=== PATIENT | male | born 2000 | race Caucasian/White ===

== ENCOUNTER 2021-02-18 12:34 | Emergency (ER) | payer OTHER ==
[~2021-02-18] VITALS: Ht 167.6 cm; Wt 59.0 kg
[2021-02-18 13:01] VITALS: BP 149/64
--- NOTE | 2021-02-18 13:16 | NUR ---
PT AMBULATED TO BED, STEADY GAIT
[2021-02-18] MEDS ORDERED: ONDANSETRON 4 MG/2 ML VIAL IVP ONE (13:20)
[2021-02-18] MEDS ORDERED: NACL 0.9% 1,000 ML IV ONE (13:20)
--- NOTE | 2021-02-18 13:29 | NUR ---
20 Y/O MALE C/O ABDOMINAL DISCOMFORT WITH NAUSEA AND DRY HEAVING. PT REPORTS LOSS OF APETITE, DIZZY, WEAK, CHILLS SINCE THIS MORNING. URINARY AND BOWEL ELIMINATION NORMAL. PT AMBULATED TO BED WITH NO ASSISTANCE, CURRENTLY SITTING SEMI FOWLERS WITH RAIL UP X1, BED IN LOWEST SETTING. HX: NONE NKDA MEDS: NONE
--- NOTE | 2021-02-18 13:51 | NUR ---
BLOOD WORK COLLECTED, KARIE, AND URINE GIVEN TO SANG TORRE IN LAB
[2021-02-18 14:03] LABS: BASOPHILS % (AUTO) 0.3 % (0.0-2.0); HEMATOCRIT 48.6 % (36-52); HEMOGLOBIN 16.7 g/dL (12.0-18.0); LYMPHOCYTES # (AUTO) 0.9 K/uL (2.0-11.5); LYMPHOCYTES % (AUTO) 14.2 % (20.5-51.1); MEAN CORPUSCULAR HEMOGLOBIN 32 pg (27-31); MEAN CORPUSCULAR HGB CONC 34 g/dL (33-37); MONOCYTES # (AUTO) 0.2 K/uL (0.8-1.0); MONOCYTES % (AUTO) 2.9 % (1.7-9.3); NEUTROPHILS # (AUTO) 5.1 K/uL (1.8-7.7); NEUTROPHILS % (AUTO) 82.6 % (42.2-75.2); PLATELET COUNT (AUTO) 310 K/uL (140-450); RED BLOOD CELL COUNT(AUTO) 5.29 MIL/uL (4.20-6.10); RED CELL DISTRIBUTION WIDTH 12.7 % (11.6-13.7); WHITE BLOOD COUNT (AUTO) 6.1 K/uL (4.8-10.8)
[2021-02-18 14:13] LABS: APPEARANCE,URINE CLEAR (CLEAR); BILIRUBIN,URINE 1+ (NEGATIVE); BLOOD, URINE NEGATIVE (NEGATIVE); COLOR,URINE YELLOW (YELLOW); LEUKOCYTE ESTERASE ,URINE NEGATIVE (NEGATIVE); NITRITE, URINE NEGATIVE (NEGATIVE); UGLUCOSE NEGATIVE (NEGATIVE)
[2021-02-18 14:15] LABS: ALBUMIN 4.8 g/dL (3.4-5.0); ANION GAP 17.6 (8-16); CARBON DIOXIDE 23.5 mmol/L (21-32); POTASSIUM 4.1 mmol/L (3.5-5.1); TOTAL BILIRUBIN 2.9 mg/dL (0.0-1.0)
--- NOTE | 2021-02-18 14:50 | NUR ---
Ad mane in ED - 02/18/21 at 1508 by [email or web address] PT TAKEN TO CT VIA W/C
--- NOTE | 2021-02-18 14:55 | NUR ---
PT BROUGHT TO CT
[2021-02-18] MEDS ORDERED: ONDA-188 PO (15:46)
[2021-02-18] MEDS ORDERED: ACET-2619 PO (15:46)
[2021-02-18 16:02] VITALS: BP 149/64
--- NOTE | 2021-02-18 16:02 | NUR ---
Patient discharged with v/s stable. Written and verbal after care instructions given and explained. Patient alert, oriented and verbalized understanding of instructions. Ambulatory with steady gait. All questions addressed prior to discharge. ID band removed. Patient advised to follow up with PMD. Rx of TYLENOL AND ZOFRAN given. Patient educated on indication of medication including possible reaction and side effects. Opportunity to ask questions provided and answered.
== END 2021-02-18 16:02 | disposition home or self-care (01) ==
LOC: MED 12:34
DX: R10.33 Periumbilical pain (principal); R10.31 Right lower quadrant pain; R11.2 Nausea with vomiting, unspecified; R19.7 Diarrhea, unspecified; F12.90 Cannabis use, unspecified, uncomplicated; Z20.822 Contact with and (suspected) exposure to COVID-19; Z79.899 Other long term (current) drug therapy
CPT/HCPCS: 36415; 74177; 80053; 81003; 83690; 85025; 87086; 87426; 96361; 96374; 99285; J2405; J7030; Q9967

== ENCOUNTER 2021-04-05 11:46 | Emergency (ER) | payer OTHER ==
[~2021-04-05] VITALS: Ht 167.6 cm; Wt 54.4 kg
[~2021-04-05 11:46] MED LIST: ACET-2619 PO; ONDA-188 PO
[2021-04-05 12:14] VITALS: BP 160/99
--- NOTE | 2021-04-05 14:01 | NUR ---
KARIE AND FLU SWABS COLLECTED AND WALKED TO LAB
[2021-04-05] MEDS ORDERED: NAPR-54 PO (15:49)
[2021-04-05] MEDS ORDERED: PHEN177S23 PO (15:49)
--- NOTE | 2021-04-05 16:25 | NUR ---
NO NURSING CARE GIVEN. Patient discharged with v/s stable. Written and verbal after care instructions given and explained. Patient alert, oriented and verbalized understanding of instructions. Ambulatory with steady gait. All questions addressed prior to discharge. ID band removed. Patient advised to follow up with PMD. Rx of CHLORASEPTIC 177, NAPOSYN given. Patient educated on indication of medication including possible reaction and side effects. Opportunity to ask questions provided and answered.
== END 2021-04-05 15:55 | disposition home or self-care (01) ==
LOC: MED 11:46
DX: U07.1 COVID-19 (principal)
CPT/HCPCS: 87804; 99283

== ENCOUNTER 2022-03-06 13:41 | Emergency (ER) | payer OTHER ==
[~2022-03-06] VITALS: Ht 167.6 cm; Wt 53.5 kg
[~2022-03-06 13:41] MED LIST changes: +NAPR-54 PO; +PHEN177S23 PO
[2022-03-06 15:11] VITALS: BP 109/71
[2022-03-06 17:19] LABS: BASOPHILS % (AUTO) 0.5 % (0.0-2.0); EOSINOPHILS % (AUTO) 0.4 % (0.0-4.0); HEMOGLOBIN 16.1 g/dL (12.0-18.0); LYMPHOCYTES # (AUTO) 0.7 K/uL (2.0-11.5); LYMPHOCYTES % (AUTO) 9.3 % (20.5-51.1); MEAN CORPUSCULAR HEMOGLOBIN 32 pg (27-31); MEAN CORPUSCULAR HGB CONC 34 g/dL (33-37); MONOCYTES # (AUTO) 0.6 K/uL (0.8-1.0); MONOCYTES % (AUTO) 8.4 % (1.7-9.3); NEUTROPHILS # (AUTO) 6.2 K/uL (1.8-7.7); NEUTROPHILS % (AUTO) 81.4 % (42.2-75.2); PLATELET COUNT (AUTO) 267 K/uL (140-450); RED BLOOD CELL COUNT(AUTO) 5.11 MIL/uL (4.20-6.10); RED CELL DISTRIBUTION WIDTH 13.2 % (11.6-13.7); WHITE BLOOD COUNT (AUTO) 7.6 K/uL (4.8-10.8)
[2022-03-06 17:43] LABS: ALBUMIN 4.9 g/dL (3.4-5.0); ANION GAP 15.4 (8-16); CARBON DIOXIDE 28.1 mmol/L (21-32); POTASSIUM 3.5 mmol/L (3.5-5.1); TOTAL BILIRUBIN 2.1 mg/dL (0.0-1.0)
--- NOTE | 2022-03-06 19:05 | NUR ---
21yr old male bib self c/o r rib pain x3days cough . sharp 7/10 rib pain with cough. HAS HAD A COUGH DENIES CP OR SOB. PT IS A&OX4 RESP EVEN AND UNLABORED. SKIN WARM AND DRY. NKDA NO HX
[2022-03-06] MEDS ORDERED: IBUP-2213 PO (19:23)
[2022-03-06 19:26] VITALS: BP 109/71
--- NOTE | 2022-03-06 19:26 | NUR ---
Patient discharged with v/s stable. Written and verbal after care instructions given and explained. Patient verbalized understanding. Ambulatory with steady gait. All questions addressed prior to discharge. Advised to follow up with PMD.
--- NOTE | 2022-03-06 19:30 | NUR ---
The patient's care was reviewed and supervised by Tahmina Dallas RN.
== END 2022-03-06 19:26 | disposition home or self-care (01) ==
LOC: MED 13:41
DX: J06.9 Acute upper respiratory infection, unspecified (principal); Z20.822 Contact with and (suspected) exposure to COVID-19
CPT/HCPCS: 36415; 71045; 80053; 83690; 85025; 99284

== ENCOUNTER 2022-08-10 17:02 | Emergency (ER) | payer OTHER ==
[~2022-08-10] VITALS: Ht 167.6 cm; Wt 59.9 kg
[~2022-08-10 17:02] MED LIST changes: +IBUP-2213 PO
[2022-08-10 18:01] VITALS: BP 117/74
[2022-08-10 18:17] LABS: BASOPHILS % (AUTO) 0.3 % (0.0-2.0); HEMATOCRIT 46.4 % (36-52); HEMOGLOBIN 16.1 g/dL (12.0-18.0); LYMPHOCYTES # (AUTO) 0.7 K/uL (2.0-11.5); LYMPHOCYTES % (AUTO) 9.4 % (20.5-51.1); MEAN CORPUSCULAR HEMOGLOBIN 31 pg (27-31); MEAN CORPUSCULAR HGB CONC 35 g/dL (33-37); MEAN CORPUSCULAR VOLUME 89.6 fL (80-94); MONOCYTES # (AUTO) 0.8 K/uL (0.8-1.0); MONOCYTES % (AUTO) 10.7 % (1.7-9.3); NEUTROPHILS # (AUTO) 6.3 K/uL (1.8-7.7); NEUTROPHILS % (AUTO) 79.6 % (42.2-75.2); PLATELET COUNT (AUTO) 232 K/uL (140-450); RED BLOOD CELL COUNT(AUTO) 5.17 MIL/uL (4.20-6.10); RED CELL DISTRIBUTION WIDTH 13.1 % (11.6-13.7); WHITE BLOOD COUNT (AUTO) 7.9 K/uL (4.8-10.8)
[2022-08-10 18:36] LABS: ALBUMIN 4.7 g/dL (3.4-5.0); ANION GAP 14.4 (8-16); CARBON DIOXIDE 26.5 mmol/L (21-32); CREATININE 1.3 mg/dL (0.6-1.3); POTASSIUM 3.9 mmol/L (3.5-5.1); TOTAL BILIRUBIN 1.1 mg/dL (0.0-1.0)
[2022-08-10] MEDS ORDERED: KETOROLAC 30 MG/ML VIAL IVP ONE (19:30)
[2022-08-10] MEDS ORDERED: NACL 0.9% 1,000 ML IV ONE (19:30)
[2022-08-10] MEDS ORDERED: ONDANSETRON 4 MG/2 ML VIAL IVP ONE (19:30)
--- NOTE | 2022-08-10 19:32 | NUR ---
PT TO BED 4
--- NOTE | 2022-08-10 19:33 | NUR ---
REPORT RECEIVED C/O DIARRHEA , PT WAS EXAMINE BY
[2022-08-10] MEDS ORDERED: FAMO-90 PO ×2 (19:40→21:29)
[2022-08-10] MEDS ORDERED: SIME125T38 PO ×2 (19:40→21:29)
[2022-08-10] MEDS ORDERED: LOPE-289 PO ×2 (19:40→21:29)
[2022-08-10] MEDS ORDERED: ONDA-188 PO ×2 (19:40→21:29)
[2022-08-10 19:55] VITALS: BP 117/70
--- NOTE | 2022-08-10 20:53 | NUR ---
Patient discharged with v/s stable. Written and verbal after care instructions given and explained. Patient alert, oriented and verbalized understanding of instructions. Ambulatory with steady gait HOME WITH FRIEND. All questions addressed prior to discharge. ID band removed. Patient advised to follow up with PMD. Rx of LOPERAMIDE PEPCID MYLANTA given. Patient educated on indication of medication including possible reaction and side effects. Opportunity to ask questions provided and answered.
== END 2022-08-10 20:45 | disposition home or self-care (01) ==
LOC: MED 17:02
DX: A08.4 Viral intestinal infection, unspecified (principal); Z79.899 Other long term (current) drug therapy
CPT/HCPCS: 36415; 80053; 83690; 85025; 96361; 96374; 96375; 99284; J1885; J2405; J7030

== ENCOUNTER 2022-11-10 12:49 | Emergency (ER) | payer OTHER ==
[~2022-11-10] VITALS: Ht 165.1 cm; Wt 55.4 kg
[~2022-11-10 12:49] MED LIST changes: +FAMO-90 PO; +LOPE-289 PO; +SIME125T38 PO
[2022-11-10 13:16] VITALS: BP 114/62; PULSE 71; RESP 20; TEMP 99.2; O2SAT 98
[2022-11-10 14:01] LABS: BASOPHILS % (AUTO) 0.8 % (0.0-2.0); EOSINOPHILS # (AUTO) 0.1 K/uL (0-0.4); EOSINOPHILS % (AUTO) 1.8 % (0.0-4.0); HEMATOCRIT 46.2 % (36-52); HEMOGLOBIN 15.8 g/dL (12.0-18.0); LYMPHOCYTES # (AUTO) 1.4 K/uL (2.0-11.5); LYMPHOCYTES % (AUTO) 27.5 % (20.5-51.1); MEAN CORPUSCULAR HEMOGLOBIN 31 pg (27-31); MEAN CORPUSCULAR HGB CONC 34 g/dL (33-37); MEAN CORPUSCULAR VOLUME 90.4 fL (80-94); MONOCYTES # (AUTO) 0.2 K/uL (0.8-1.0); MONOCYTES % (AUTO) 4.8 % (1.7-9.3); NEUTROPHILS # (AUTO) 3.4 K/uL (1.8-7.7); NEUTROPHILS % (AUTO) 65.1 % (42.2-75.2); PLATELET COUNT (AUTO) 315 K/uL (140-450); RED BLOOD CELL COUNT(AUTO) 5.11 MIL/uL (4.20-6.10); RED CELL DISTRIBUTION WIDTH 12.9 % (11.6-13.7); WHITE BLOOD COUNT (AUTO) 5.2 K/uL (4.8-10.8)
[2022-11-10 14:31] LABS: ALBUMIN 4.2 g/dL (3.4-5.0); ANION GAP 12.2 (8-16); CREATININE 1.1 mg/dL (0.6-1.3); POTASSIUM 4.2 mmol/L (3.5-5.1); TOTAL BILIRUBIN 1.4 mg/dL (0.0-1.0)
[2022-11-10] MEDS ORDERED: DIPHENOXYLATE /ATROPINE 2.5 MG TAB PO SCH (15:00)
[2022-11-10 15:42] VITALS: BP 115/60; PULSE 70; RESP 18; TEMP 98.1; O2SAT 99
== END 2022-11-10 15:42 | disposition home or self-care (01) ==
LOC: MED 12:49
DX: R19.7 Diarrhea, unspecified (principal); R53.83 Other fatigue; Z79.899 Other long term (current) drug therapy
CPT/HCPCS: 36415; 80053; 85025; 99283

== ENCOUNTER 2022-12-16 16:40 | Emergency (ER) | payer OTHER ==
[~2022-12-16] VITALS: Ht 167.6 cm; Wt 54.4 kg
[2022-12-16 16:45] VITALS: BP 102/50; PULSE 71; RESP 16; TEMP 98.3; O2SAT 99
[2022-12-16] MEDS ORDERED: FAMOTIDINE 20 MG TAB PO ONE (16:55)
[2022-12-16] MEDS ORDERED: predniSONE 20 MG TAB PO ONE (16:55)
[2022-12-16] MEDS ORDERED: FAMO-92 PO (16:57)
[2022-12-16] MEDS ORDERED: BEN50 PO (16:57)
[2022-12-16] MEDS ORDERED: PRED20TA5 PO (16:57)
== END 2022-12-16 17:09 | disposition home or self-care (01) ==
LOC: MED 16:40
DX: L23.9 Allergic contact dermatitis, unspecified cause (principal); Z79.899 Other long term (current) drug therapy
CPT/HCPCS: 99284; J7512; Q0163